=== PATIENT | female | born 1955 ===

== ENCOUNTER 2020-05-14 10:17 | Inpatient (IN) | payer MEDICAID, MEDICARE ==
--- NOTE | 2020-05-14 11:11 | XRay Report ---
XR chest routine 2V INDICATION / CLINICAL INFORMATION: cough, nausea, dizziness. COMPARISON: None available. FINDINGS: SUPPORT DEVICES: None. HEART /PULMONARY VASCULATURE: No significant abnormality. LUNGS / PLEURA: No significant pulmonary or pleural abnormality. No pneumothorax. ADDITIONAL FINDINGS: No significant additional findings. IMPRESSION: 1. No acute findings. Signer Name: Ady Macias MD Signed: 05/14/2020 11:07 AM Workstation Name: [id number]
[2020-05-14 11:22] LABS: Basophils % (Auto) 0.5 % (0.0-1.8); Eosinophils % (Auto) 0.3 % (0.0-4.3); Hematocrit 36.1 % (30.3-42.9); Hemoglobin 11.7 gm/dl (10.1-14.3); Lymphocytes # (Auto) 1.8 K/mm3 (1.2-5.4); Lymphocytes % (Auto) 23.9 % (13.4-35.0); Mean Corpuscular HGB Conc 32 % (30-34); Mean Corpuscular Volume 88 fl (79-97); Monocytes # (Auto) 0.6 K/mm3 (0.0-0.8); Monocytes % (Auto) 7.8 % (0.0-7.3); Platelet Count 226 K/mm3 (140-440); Red Blood Count 4.09 M/mm3 (3.65-5.03); Red Cell Distribution Width 14.5 % (13.2-15.2)
[2020-05-14 11:46] LABS: Albumin 3.5 g/dL (3.9-5); Calcium 9.5 mg/dL (8.4-10.2)
[2020-05-14] MEDS ORDERED: SODIUM CHLORIDE 0.9% 500 ML 500 ML IV ONE (16:45)
[2020-05-14] MEDS ORDERED: INSULIN REGULAR, HUMAN 100 UNIT/ML 3ML VIAL IV ONE (16:45)
[2020-05-14] MEDS ORDERED: SODIUM POLYSTYRENE 15 GM/60 ML ORAL LIQD PO ONE (16:46)
--- NOTE | 2020-05-14 16:47 | Emergency Department Report ---
ED General Adult HPI - General Chief complaint: Dizziness Stated complaint: COUGH/NAUSEA/DIZZNESS PUI?: Yes Time Seen by Provider: 05/14/20 16:13 Source: patient, EMS ( EMS documentation not available at time of chart dic tation ), RN notes reviewed Mode of arrival: Wheelchair Limitations: Physical Limitation - History of Present Illness Initial comments: The patient was evaluated in the emergency department for symptoms described in the history of present illness. He/she was evaluated in the context of the global COVID-19 pandemic, which necessitated consideration that the patient might be at risk for infection with the virus that causes COVID-19. Institutional protocols and algorithms that pertain to the evaluation of patients at risk for COVID-19 are in a state of rapid change based on information released by regulatory bodies including the CDC and federal and state organizations. These policies and algorithms were followed during the patient's care in the emergency department. Please note that these policies, procedures and recommendations changed on a rapid basis. During the entire history and physical examination, I had on complete personal protective equipment. The patient is a pleasant 64-year-old female. She is not known to myself previously. She is visiting from [place], [place]. Her past medical history includes diabetes, GERD, hypertension, stroke, residual left-sided deficits. The patient presents to the ER with a complaint of nontraumatic cough, dry, wet, loss of taste, smell, x1 week, 2 episodes of nonbloody, nonbilious diarrhea today, no urinary symptoms, and sensation of lightheadedness and dizziness, present upon waking up at 8:00 in the morning, described as a sensation of almost passing out. No fever, no travel, no surgeries, no DVT or pulmonary embolism risk factors. Patient denies physical pain at this time. She does not believe she has had any new medications started. Does not have a history of renal insufficiency that she is aware of. Cough intermittent. Diarrhea resolved. Dizziness resolved. Not radiate anywhere. No significant exacerbating relieving factors that she is aware of. -: Gradual, days(s) Consistency: intermittent Improves with: none Worsens with: none - Related Data Allergies Allergy/AdvReac Type Severity Reaction Status Date / Time No Known Allergies Allergy Unverified 05/14/20 10:21 ED Review of Systems ROS: Stated complaint: COUGH/NAUSEA/DIZZNESS Other details as noted in HPI Constitutional: malaise, weakness. denies: fever Eyes: denies: eye discharge ENT: congestion Respiratory: cough Cardiovascular: syncope. denies: chest pain Gastrointestinal: nausea, vomiting, diarrhea. denies: abdominal pain Genitourinary: denies: dysuria Musculoskeletal: as per HPI. denies: myalgia Neurological: weakness. denies: headache ED Past Medical Hx - Past Medical History Previous Medical History?: Yes Hx Hypertension: Yes Hx Diabetes: Yes Hx GERD: Yes - Social History Smoking Status: Former Smoker Substance Use Type: None ED Physical Exam - General Limitations: Physical Limitation General appearance: alert, in no apparent distress - Head Head exam: Present: atraumatic, normocephalic - Eye Eye exam: Present: normal appearance, PERRL, EOMI, other (Visual acuity intact to finger counting, color perception, reading at a close distance). Absent: nystagmus - ENT ENT exam: Present: normal exam, normal orophraynx, mucous membranes moist, normal external ear exam - Neck Neck exam: Present: normal inspection, full ROM. Absent: tenderness, meningismus - Respiratory Respiratory exam: Present: normal lung sounds bilaterally. Absent: respiratory distress, wheezes, rales, rhonchi, stridor - Cardiovascular Cardiovascular Exam: Present: regular rate, normal rhythm, normal heart sounds. Absent: bradycardia, tachycardia, irregular rhythm, systolic murmur, diastolic murmur, rubs, gallop - GI/Abdominal GI/Abdominal exam: Present: soft. Absent: distended, tenderness, guarding, rebound, rigid, pulsatile mass, hernia - Extremities Exam Extremities exam: Present: normal inspection, full ROM, pedal edema (1+ edema in the bilateral lower extremity), other (The patient was evaluated in the emergency department for symptoms described in the history of present illness. He/she was evaluated in the context of the global COVID-19 pandemic, which necessitated consideration that the patient might be at risk for infection with the virus that causes COVID-19. Institutional protocols and algorithms that pertain to the evaluation of patients at risk for COVID-19 are in a state of rapid change based on information released by regulatory bodies including the CDC and federal and state organizations. These policies and algorithms were followed during the patient's care in the emergency department. Please note that these policies, procedures and recommendations changed on a rapid basis.). Absent: calf tenderness - Back Exam Back exam: Present: normal inspection. Absent: tenderness, CVA tenderness (R), CVA tenderness (L), paraspinal tenderness, vertebral tenderness - Neurological Exam Neurological exam: Present: alert, oriented X3, other (No facial droop. Tongue midline. Extraocular movements intact bilaterally. Facial sensation intact to light touch in V1, V2, V3 distribution bilaterally. 5 and a 5 strength in 4 extremities. Sensation intact to light touch in 4 extremities.). Absent: motor sensory deficit - Psychiatric Psychiatric exam: Present: normal affect, normal mood - Skin Skin exam: Present: warm, dry, intact, normal color. Absent: rash ED Course Vital Signs 05/14/20 10:29 Temperature 97.9 F Pulse Rate 81 Respiratory 20 Rate Blood Pressure 107/55 O2 Sat by Pulse 96 Oximetry - Reevaluation(s) Reevaluation #1: 05/14/20 17:20 Differential diagnosis, including but not limited to: Orthostasis, dehydration, vagal event, structural cardiac disease, polypharmacy, pneumonia, urinary tract infection, COVID-19, stroke Assessment and plan: 64-year-old female, with a GCS of 15, wake-up symptoms, has chronic shift in her right upper extremities, chronic, in her right upper extremities, while she has a NIH score of 4, woke up with symptoms, examination not suggestive of large vessel occlusion, and she also states that right upper extremity findings are chronic. Not a candidate for TPA for the reasons described above. Place patient on isolation given cough, loss of taste and nonspecific constitutional symptoms. Start gentle IV fluids, and initiate Kayexalate. No indication for antibiotics or steroids at this time. Obtain CT scan of the brain. Nursing team to reconcile medications. Give Kayexalate. Have instructed patient that we would recommend admission for further optimization and investigation of the aforementioned abnormalities. She is amenable to this plan of care. Not currently tachycardic, tachypneic or hypoxic, denies DVT, pulmonary embolism risk factors, and I find her to be low risk by Wells criteria. Reevaluation #2: 05/14/20 18:14 CT scan of the brain negative for acute findings. Hospital physician, Dr. Romero to admit. ED Medical Decision Making - Lab Data Result diagrams: 05/14/20 11:01 05/14/20 16:54 Vital Signs 11/26/20 10:29 Temperature 97.9 F Pulse Rate 81 Respiratory 20 Rate Blood Pressure 107/55 O2 Sat by Pulse 96 Oximetry Lab Results 05/14/20 05/14/20 05/14/20 Range/Units 11:01 11:01 11:01 WBC 7.3 (4.5-11.0) K/mm3 RBC 4.09 (3.65-5.03) M/mm3 Hgb 11.7 (10.1-14.3) gm/dl Hct 36.1 (30.3-42.9) % MCV 88 (79-97) fl MCH 29 (28-32) pg MCHC 32 (30-34) % RDW 14.5 (13.2-15.2) % Plt Count 226 (140-440) K/mm3 Lymph % (Auto) 23.9 (13.4-35.0) % [place] % (Auto) 7.8 H (0.0-7.3) % Eos % (Auto) 0.3 (0.0-4.3) % Baso % (Auto) 0.5 (0.0-1.8) % Lymph # (Auto) 1.8 (1.2-5.4) K/mm3 [place] # (Auto) 0.6 (0.0-0.8) K/mm3 Eos # (Auto) 0.0 (0.0-0.4) K/mm3 Baso # (Auto) 0.0 (0.0-0.1) K/mm3 Seg Neutrophils % 67.5 (40.0-70.0) % Seg Neutrophils # 4.9 (1.8-7.7) K/mm3 Sodium 134 L (137-145) mmol/L Potassium 5.2 H (3.6-5.0) mmol/L Chloride 96.7 L (98-107) mmol/L Carbon Dioxide 26 (22-30) mmol/L Anion Gap 17 mmol/L BUN 30 H (7-17) mg/dL Creatinine 2.2 H (0.6-1.2) mg/dL Estimated GFR 22 ml/min BUN/Creatinine Ratio 14 % Glucose 381 H (65-100) mg/dL Calcium 9.5 (8.4-10.2) mg/dL Magnesium 2.10 (1.7-2.3) mg/dL Total Bilirubin 0.40 (0.1-1.2) mg/dL AST 26 (5-40) units/L ALT 24 (7-56) units/L Alkaline Phosphatase 116 (35-129) units/L Total Creatine Kinase 288 H (30-135) units/L NT-Pro-B Natriuret Pep 84.64 (0-900) pg/mL Total Protein 7.5 (6.3-8.2) g/dL Albumin 3.5 L (3.9-5) g/dL Albumin/Globulin Ratio 0.9 % Lipase 25 (13-60) units/L - EKG Data -: EKG Interpreted by Me EKG shows normal: sinus rhythm - EKG Data When compared to previous EKG there are: previous EKG unavailable 05/14/20 17:19 Sinus rhythm, 82 bpm, left axis deviation, borderline left anterior fascicular block, poor R wave progression, motion artifact. No endorsement of chest pain. The EKG is not a STEMI. - Radiology Data Radiology results: pending, report reviewed, image reviewed Critical care attestation.: If time is entered above; I have spent that time in minutes in the direct care of this critically ill patient, excluding procedure time. ED Disposition Clinical Impression: Hyperkalemia, Renal insufficiency, Suspected 2019 novel coronavirus infection, Dizziness, Hyperglycemia Disposition: DC-09 OP ADMIT IP TO THIS HOSP Is pt being admited?: Yes Condition: Good Referrals: PRIMARY CARE, [Primary Care Provider] - 3-5 Days - Assessment Assessment Interval: Baseline - Level of Consciousness 1a. Level of Consciousness: alert/keenly responsive - LOC Questions 1b. LOC Questions: answers both correctly - LOC Command 1c. LOC Commands: performs tasks correctly - Best Gaze 2. Best Gaze: normal - Visual 3. Visual: no visual loss - Facial Palsy 4. Facial Palsy: normal symmetrical movement - Motor Arm 5a. Motor Arm Left: drift 5b. Motor Arm Right: drift - Motor Leg 6a. Motor Leg Left: no drift 6b. Motor Leg Right: no drift - Limb Ataxia 7. Limb Ataxia: present 2 limbs - Sensory 8. Sensory: normal (States drift is chronic in bilateral upper extremities and bilateral upper extremities.) - Best Language 9. Best Language: no aphasia - Dysarthria 10. Dysarthria: normal - Extinction and Inattention 11. Extinction/Inattention: no abnormality - Scoring Total Score: 4 Stroke Severity: Minor Stroke
[2020-05-14] MEDS ORDERED: INSULIN REGULAR, HUMAN 100 UNITS/1 ML ONE (17:00)
[2020-05-14 17:26] LABS: C-Reactive Protein 3.4 mg/dL (0.00-1.30)
[2020-05-14 17:27] LABS: Uric Acid 6.8 mg/dL (3.5-7.6)
--- NOTE | 2020-05-14 18:11 | Cat Scan Report ---
NONENHANCED CT SCAN OF THE HEAD: INDICATION / CLINICAL INFORMATION: 64 years Female; dizzy, hx of cva. TECHNIQUE: Routine CT head without contrast. All CT scans at this location are performed using CT dos e reduction for ALARA by means of automated exposure control. COMPARISON: None. FINDINGS: BRAIN / INTRACRANIAL CONTENTS: No acute hemorrhage, mass effect, midline shift, hydrocephalus, or acu te, large territorial infarct. Focal low-attenuation areas in the left middle temporal gyrus and in t he left cerebellar hemispheric white matter; ischemic areas of indeterminate age, however, probably c hronic. Normal brain volume and ventricular/sulcal size for age. No significant white matter abnormal ity. CRANIOCERVICAL JUNCTION: No significant abnormality. ORBITS: No significant abnormality of visualized orbits. SINUSES / MASTOIDS: No significant abnormality of the visualized paranasal sinuses or mastoid air andria ls. ADDITIONAL FINDINGS: None. IMPRESSION: No hemorrhage or space taking lesion Low attenuation areas in the left middle temporal gyrus and left cerebellar hemisphere; ischemic, age indeterminate but probably chronic Signer Name: Kenrick Lopez MD Signed: 05/14/2020 6:07 PM Workstation Name: [id number]
[2020-05-14] MEDS ORDERED: ASPIRIN 81 MG TAB CHEW PO ONE (18:14)
--- NOTE | 2020-05-14 18:16 | History and Physical Report ---
History of Present Illness Chief complaint: I feel sick History of present illness: 64 YO Female with HTN, DM, GERD, CVA with LHP, Obesity Hypoventilation Syndrome presents to ED for evaluation. Patient states that she has been "feeling sick" over the past 1 week with persistently worsening symptoms over the same nevin eframe. Patient acknowledges fatigue, generalized weakness, decreased exercise tolerance, dry cough, loss of sense of taste, loss of sense of smell, multiple episodes of nausea, multiple loose stools over the past 10 hours. EMS was notified and upon arrival the patient was found to be in distress and subsequently transported to [facility] for further care and evaluation of the aforementioned symptoms. The patient was seen and evaluated in the emergency department. All lab and imaging studies reviewed. The patient was found to have acute kidney injury, uncontrolled diabetes mellitus, hyperkalemia, hyponatremia, as well as symptoms consistent with coronavirus. Patient initiated on coronavirus protocol prior to my evaluation in the emergency department. Patient admitted to medical floor due to increased risk of pulmonary decompensation. Patient knowledges subjective fever. Patient denies chills, chest pain, palpitation, skin rash, recent ill contacts, or known exposure to COVID-19. No prior admission for review. No medication listed at time of admission for reconciliation. Advanced care planning conducted in ED. Past History Past Medical History: diabetes, GERD, hypertension, stroke Past Surgical History: No surgical history, Other (Reviewed) Social history: single. denies: smoking, alcohol abuse, prescription drug abuse Family history: hypertension Medications and Allergies Allergies Allergy/AdvReac Type Severity Reaction Status Date / Time No Known Allergies Allergy Unverified 05/14/20 10:21 Review of Systems Constitutional: fever, fatigue, weakness, malaise, no weight loss, no weight gain Ears, nose, mouth and throat: no ear pain, no ear discharge, no tinnitis, no decreased hearing Breasts: no change in shape, no swelling, no mass Cardiovascular: no chest pain, no orthopnea, no palpitations, no edema Respiratory: shortness of breath, no cough, no cough with sputum, no excessive sputum Gastrointestinal: nausea, diarrhea, no abdominal pain, no constipation, no change in bowel habits, no hematemesis Genitourinary Female: no pelvic pain, no flank pain, no dysuria, no urinary frequency, no urgency Rectal: no pain, no incontinence, no bleeding Musculoskeletal: no neck stiffness, no neck pain, no shooting arm pain, no arm numbness/tingling, no low back pain Integumentary: no rash, no pruritis, no redness, no sores, no wounds Neurological: no head injury, no transient paralysis, no weakness, no parathes ias, no seizures, no tremors Psychiatric: no anxiety, no memory loss, no insomnia, no hypersomnia, no change in appetite, no disorientation Endocrine: no cold intolerance, no heat intolerance, no polyphagia, no polydipsia, no polyuria, no nocturia Hematologic/Lymphatic: no easy bruising, no easy bleeding, no lymphadenopathy, no lymphedema Allergic/Immunologic: no urticaria, no allergic rhinitis, no persistent infections, no anaphylaxis, no angioedema Exam - Constitutional Vitals: Temp Pulse Resp BP Pulse Ox 97.9 F 81 20 107/55 96 05/14/20 10:29 05/14/20 10:29 05/14/20 10:29 05/14/20 10:29 05/14/20 10:29 General appearance: Present: mild distress, obese - EENT Eyes: Present: PERRL ENT: hearing intact, clear oral mucosa - Neck Neck: Present: supple, normal ROM - Respiratory Respiratory effort: normal Respiratory: bilateral: diminished - Cardiovascular Heart Sounds: Present: S1 & S2. Absent: rub, click - Extremities Extremities: pulses symmetrical, No edema Peripheral Pulses: within normal limits - Abdominal General gastrointestinal: Present: soft, non-tender, non-distended, normal bowel sounds Female genitourinary: Present: normal - Integumentary Integumentary: Present: clear, warm, dry - Musculoskeletal Musculoskeletal: gait normal, strength equal bilaterally - Psychiatric Psychiatric: appropriate mood/affect, intact judgment & insight - Neurologic Neurologic: CNII-XII intact, moves all extremities Results - Labs CBC & Chem 7: 05/14/20 11:05/14/20 16:54 Labs: Abnormal lab results 05/14/20 05/14/20 05/14/20 Range/Units 11: 11: 16:54 [place] % (Auto) 7.8 H (0.0-7.3) % Sodium 134 L (137-145) mmol/L Potassium 5.2 H (3.6-5.0) mmol/L Chloride 96.7 L (98-107) mmol/L BUN 30 H (7-17) mg/dL Creatinine 2.2 H (0.6-1.2) mg/dL Glucose 381 H 446 H (65-100) mg/dL Ferritin (10.0-200.0) ng/mL Lactate Dehydrogenase 229 H (91-180) units/L Total Creatine Kinase 288 H (30-135) units/L C-Reactive Protein 3.40 H (0.00-1.30) mg/dL Albumin 3.5 L (3.9-5) g/dL 05/14/20 Range/Units 16:54 [place] % (Auto) (0.0-7.3) % Sodium (137-145) mmol/L Potassium (3.6-5.0) mmol/L Chloride (98-107) mmol/L BUN (7-17) mg/dL Creatinine (0.6-1.2) mg/dL Glucose (65-100) mg/dL Ferritin 593.3 H (10.0-200.0) ng/mL Lactate Dehydrogenase (91-180) units/L Total Creatine Kinase (30-135) units/L C-Reactive Protein (0.00-1.30) mg/dL Albumin (3.9-5) g/dL Assessment and Plan - Patient Problems (1) Suspected 2019 novel coronavirus infection Current Visit: Yes Status: Acute Plan to address problem: Coronavirus protocol: Contact precautions, isolation precautions, empiric IV antibiotic therapy, IV steroid therapy, supplemental oxygen, pulse oximetry, nebulizer therapy, prone positioning while in bed, (2) Acute kidney injury (TOVA) with acute tubular necrosis (ATN) Current Visit: Yes Status: Acute Plan to address problem: Encourage free water intake, monitor urine output every shift, monitor fluid balance, (3) Obesity hypoventilation syndrome Current Visit: Yes Status: Acute Plan to address problem: Supplemental oxygen, nebulizer therapy, outpatient pulmonary follow-up for sleep study. (4) Hyperkalemia Current Visit: Yes Status: Acute Plan to address problem: Kayexalate administered in the emergency department. No EKG changes. (5) Hyponatremia syndrome Current Visit: Yes Status: Acute Plan to address problem: IV fluid resuscitation therapy as clinically indicated, BMP, repeat BMP in a.m. (6) DVT prophylaxis Current Visit: Yes Status: Acute Plan to address problem: SCD to bilateral lower extremities while in bed, prophylactic anticoagulation. (7) Advance care planning Current Visit: Yes Status: Acute Plan to address problem: Disease education conducted, patient is full code, prognosis discussed, care plan discussed, patient knowledges understanding and agreement with care plan, +30 minutes.
[2020-05-14] MEDS ORDERED: ACETAMINOPHEN 325 MG TAB PO PRN (18:20)
[2020-05-14] MEDS ORDERED: ALBUTEROL 2.5 MG/3 ML NEBU IH PRN (18:20)
[2020-05-14] MEDS ORDERED: HYDROmorphone 1 MG/1 ML INJ ONE (21:07)
[2020-05-14] MEDS ORDERED: ASPIRIN 81 MG TAB CHEW ONE (21:09)
[2020-05-14] MEDS: ONDANSETRON 4 MG/2 ML INJ IV PRN (22:46)
[2020-05-15 06:38] LABS: Basophils % (Auto) 0.3 % (0.0-1.8); Eosinophils % (Auto) 0.2 % (0.0-4.3); Hematocrit 31.9 % (30.3-42.9); Hemoglobin 10.4 gm/dl (10.1-14.3); Lymphocytes % (Auto) 38.6 % (13.4-35.0); Mean Corpuscular HGB Conc 33 % (30-34); Mean Corpuscular Volume 88 fl (79-97); Monocytes # (Auto) 0.6 K/mm3 (0.0-0.8); Monocytes % (Auto) 10.7 % (0.0-7.3); Platelet Count 211 K/mm3 (140-440); Red Blood Count 3.65 M/mm3 (3.65-5.03)
[2020-05-15 07:00] LABS: Calcium 9.1 mg/dL (8.4-10.2)
[2020-05-15] MEDS ORDERED: DEXTROSE 50% IN WATER (25GM) 50 ML SYRINGE IV PRN (07:43)
--- NOTE | 2020-05-15 07:46 | Progress Note ---
Assessment and Plan Assessment and plan: (1) Suspected 2019 novel coronavirus infection Current Visit: Yes Status: Acute Plan to address problem: Coronavirus protocol: Contact precautions, isolation precautions, empiric IV antibiotic therapy, IV steroid therapy, supplemental oxygen, pulse oximetry, nebulizer therapy (2) Acute kidney injury (TOVA) with acute tubular necrosis (ATN) Current Visit: Yes Status: Acute Plan to address problem: Encourage free water intake, monitor urine output every shift, monitor fluid balance, Improving. Creatinine decreased from 2.2-1.6 (3) diabetes mellitus, uncontrolled Current Visit: Yes Status: Acute Plan to address problem: Patient started on sliding scale insulin, ADA diet, Accu-Chek, will check hemoglobin A1c, the patient on 10 units of Lantus nightly. Will monitor and adjust as needed (4) Hyperkalemia Current Visit: Yes Status: Acute Plan to address problem: Kayexalate administered in the emergency department. No EKG changes. Corrected (5) Hyponatremia syndrome Current Visit: Yes Status: Acute Plan to address problem: IV fluid resuscitation therapy as clinically indicated, BMP, repeat BMP in a.m. Improving; sodium is 136 this morning (6) DVT prophylaxis Current Visit: Yes Status: Acute Plan to address problem: SCD to bilateral lower extremities while in bed, prophylactic anticoagulation. History Interval history: Patient was seen and evaluated this morning Patient did not have any complaint No shortness of breath On 1 and half liters of oxygen Hospitalist Physical - Physical exam Narrative exam: Not in cardiopulmonary distress. The patient appeared well nourished and normally developed. Vital signs as documented. Head exam is unremarkable. No scleral icterus . Neck is without jugular venous distension, thyromegaly, or carotid bruits. Lungs are clear to auscultation. Cardiac exam reveals regular rate and Rhythm. Abdominal exam reveals normal bowel sounds, nontender, no organomegaly. Extremities are nonedematous and both femoral and pedal pulses are normal. STUNNER: Alert and oriented 3. Mild left-sided weakness. - Constitutional Vitals: Temp Pulse Resp BP Pulse Ox 97.9 F 77 21 102/54 95 05/14/20 10:29 05/14/20 21:30 05/14/20 21:30 05/14/20 21:30 05/14/20 20:15 General appearance: Present: mild distress, obese Results - Labs CBC & Chem 7: 05/15/20 05:08 05/15/20 05:08 Labs: Laboratory Last Values WBC 5.3 K/mm3 (4.5-11.0) 05/15/20 05:08 RBC 3.65 M/mm3 (3.65-5.03) 05/15/20 05:08 Hgb 10.4 gm/dl (10.1-14.3) 05/15/20 05:08 Hct 31.9 % (30.3-42.9) 05/15/20 05:08 MCV 88 fl (79-97) 05/15/20 05:08 MCH 28 pg (28-32) 05/15/20 05:08 MCHC 33 % (30-34) 05/15/20 05:08 RDW 14.0 % (13.2-15.2) 05/15/20 05:08 Plt Count 211 K/mm3 (140-440) 05/15/20 05:08 Lymph % (Auto) 38.6 % (13.4-35.0) H 05/15/20 05:08 [place]ook[place] % (Auto) 10.7 % (0.0-7.3) H 05/15/20 05:08 Eos % (Auto) 0.2 % (0.0-4.3) 05/15/20 05:08 Baso % (Auto) 0.3 % (0.0-1.8) 05/15/20 05:08 Lymph # (Auto) 2.0 K/mm3 (1.2-5.4) 05/15/20 05:08 [place] # (Auto) 0.6 K/mm3 (0.0-0.8) 05/15/20 05:08 Eos # (Auto) 0.0 K/mm3 (0.0-0.4) 05/15/20 05:08 Baso # (Auto) 0.0 K/mm3 (0.0-0.1) 05/15/20 05:08 Seg Neutrophils % 50.2 % (40.0-70.0) 05/15/20 05:08 Seg Neutrophils # 2.7 K/mm3 (1.8-7.7) 05/15/20 05:08 Sodium 136 mmol/L (137-145) L 05/15/20 05:08 Potassium 4.8 mmol/L (3.6-5.0) 05/15/20 05:08 Chloride 99.8 mmol/L (98-107) 05/15/20 05:08 Carbon Dioxide 28 mmol/L (22-30) 05/15/20 05:08 Anion Gap 13 mmol/L 05/15/20 05:08 BUN 28 mg/dL (7-17) H 05/15/20 05:08 Creatinine 1.6 mg/dL (0.6-1.2) H 05/15/20 05:08 Estimated GFR 32 ml/min 05/15/20 05:08 BUN/Creatinine Ratio 18 % 05/15/20 05:08 Glucose 279 mg/dL (65-100) H 05/15/20 05:08 POC Glucose 185 mg/dL (70-105) H 05/14/20 20:09 Uric Acid 6.8 mg/dL (3.5-7.6) 05/14/20 16:54 Calcium 9.1 mg/dL (8.4-10.2) 05/15/20 05:08 Magnesium 2.10 mg/dL (1.7-2.3) 05/14/20 16:54 Ferritin 593.3 ng/mL (10.0-200.0) H 05/14/20 16:54 Total Bilirubin 0.40 mg/dL (0.1-1.2) 05/14/20 11:01 AST 26 units/L (5-40) 05/14/20 11:01 ALT 24 units/L (7-56) 05/14/20 11:01 Alkaline Phosphatase 116 units/L (35-129) 05/14/20 11:01 Lactate Dehydrogenase 229 units/L (91-180) H 05/14/20 16:54 Total Creatine Kinase 288 units/L (30-135) H 05/14/20 11:01 C-Reactive Protein 3.40 mg/dL (0.00-1.30) H 05/14/20 16:54 NT-Pro-B Natriuret Pep 84.64 pg/mL (0-900) 05/14/20 11:01 Total Protein 7.5 g/dL (6.3-8.2) 05/14/20 11:01 Albumin 3.5 g/dL (3.9-5) L 05/14/20 11:01 Albumin/Globulin Ratio 0.9 % 05/14/20 11:01 Lipase 25 units/L (13-60) 05/14/20 11:01 Waldron/IV: Voiding Method Diaper IV Catheter Type [Left Hand] INT / Saline Lock Active Medications - Current Medications Current Medications: Generic Name Dose Route Start Last Admin Trade Name Freq PRN Reason Stop Dose Admin Acetaminophen 650 mg 05/14/20 18:20 Tylenol PO Q4H PRN Pain MILD(1-3)/Fever >100.5/MARCUS Albuterol 2.5 mg 05/14/20 18:20 Proventil IH Q4HRT PRN Shortness Of Breath Dextrose 50 ml 05/15/20 07:43 D50w (25gm) Syringe IV Q30MIN PRN Hypoglycemia Protocol Levofloxacin/Dextrose 750 mg in 150 mls @ 100 mls/hr 05/14/20 20:00 05/14/20 21:13 Levaquin 750mg/150ml IV 100 mls/hr Q24HR MEI Administration Protocol Insulin Glargine 10 units 05/15/20 22:00 Lantus SUB-Q QHS MEI Insulin Human Lispro 0 unit 05/15/20 11:30 Humalog SUB-Q ACHS MEI Protocol Ondansetron HCl 4 mg 05/14/20 18:20 05/14/20 22:46 Zofran IV 4 mg Q8H PRN Administration Nausea And Vomiting Sodium Chloride 10 ml 05/14/20 22:00 05/14/20 22:03 Sodium Chloride Flush Syringe 10 Ml IV 10 ml BID MEI Administration Sodium Chloride 10 ml 05/14/20 18:20 Sodium Chloride Flush Syringe 10 Ml IV PRN PRN LINE FLUSH
[2020-05-15] MEDS: INSULIN LISPRO 100 UNIT/ML VIAL 3 mL SUB-Q SCH ×4 (08:27→21:56)
[2020-05-15] MEDS: ONDANSETRON 4 MG/2 ML INJ IV PRN (17:50)
[2020-05-15] MEDS: INSULIN GLARGINE 100 UNITS/ML SUB-Q SCH (21:55)
[2020-05-16 06:39] LABS: Calcium 9.1 mg/dL (8.4-10.2)
--- NOTE | 2020-05-16 08:05 | Progress Note ---
Assessment and Plan Assessment and plan: (1) Suspected 2019 novel coronavirus infection Current Visit: Yes Status: Acute Plan to address problem: Coronavirus protocol: Contact precautions, isolation precautions, empiric IV antibiotic therapy, IV steroid therapy, supplemental oxygen, pulse oximetry, nebulizer therapy (2) Acute kidney injury (TOVA) with acute tubular necrosis (ATN) Current Visit: Yes Status: Acute Plan to address problem: Encourage free water intake, monitor urine output every shift, monitor fluid balance, Improving. Creatinine decreased from 2.2-1.6 (3) diabetes mellitus, uncontrolled Current Visit: Yes Status: Acute Plan to address problem: Patient started on sliding scale insulin, ADA diet, Accu-Chek, will check hemoglobin A1c, the patient on 10 units of Lantus nightly. Will monitor and adjust as needed (4) Hyperkalemia Current Visit: Yes Status: Acute Plan to address problem: Kayexalate administered in the emergency department. No EKG changes. Corrected (5) Hyponatremia syndrome Current Visit: Yes Status: Acute Plan to address problem: IV fluid resuscitation therapy as clinically indicated, BMP, repeat BMP in a.m. Improving; sodium is 136 this morning (6) DVT prophylaxis Current Visit: Yes Status: Acute Plan to address problem: SCD to bilateral lower extremities while in bed, prophylactic anticoagulation. 05/08/2020 -COVID-19 test is positive, and is on 1 and half liters of oxygen, patient started on Decadron -TOVA is improving, hyperkalemia resolved, hyponatremia resolved -We will do home O2 evaluation and possible discharge today History Interval history: Patient was seen and evaluated this morning Patient did not have any complaint No shortness of breath On 1 and half liters of oxygen Hospitalist Physical - Physical exam Narrative exam: Not in cardiopulmonary distress. The patient appeared well nourished and normally developed. Vital signs as documented. Head exam is unremarkable. No scleral icterus . Neck is without jugular venous distension, thyromegaly, or carotid bruits. Lungs are clear to auscultation. Cardiac exam reveals regular rate and Rhythm. Abdominal exam reveals normal bowel sounds, nontender, no organomegaly. Extremities are nonedematous and both femoral and pedal pulses are normal. 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 Mild left-sided weakness. - Constitutional Vitals: Temp Pulse Resp BP Pulse Ox 99.0 F 78 18 107/55 100 05/15/20 21:14 05/15/20 21:14 05/15/20 21:14 05/15/20 21:14 05/16/20 01:01 General appearance: Present: mild distress, obese Results - Labs CBC & Chem 7: 05/15/20 05:08 05/16/20 05:49 Labs: Laboratory Last Values WBC 5.3 K/mm3 (4.5-11.0) 05/15/20 05:08 RBC 3.65 M/mm3 (3.65-5.03) 05/15/20 05:08 Hgb 10.4 gm/dl (10.1-14.3) 05/15/20 05:08 Hct 31.9 % (30.3-42.9) 05/15/20 05:08 MCV 88 fl (79-97) 05/15/20 05:08 MCH 28 pg (28-32) 05/15/20 05:08 MCHC 33 % (30-34) 05/15/20 05:08 RDW 14.0 % (13.2-15.2) 05/15/20 05:08 Plt Count 211 K/mm3 (140-440) 05/15/20 05:08 Lymph % (Auto) 38.6 % (13.4-35.0) H 05/15/20 05:08 [place] % (Auto) 10.7 % (0.0-7.3) H 05/15/20 05:08 Eos % (Auto) 0.2 % (0.0-4.3) 05/15/20 05:08 Baso % (Auto) 0.3 % (0.0-1.8) 05/15/20 05:08 Lymph # (Auto) 2.0 K/mm3 (1.2-5.4) 05/15/20 05:08 [place] # (Auto) 0.6 K/mm3 (0.0-0.8) 05/15/20 05:08 Eos # (Auto) 0.0 K/mm3 (0.0-0.4) 05/15/20 05:08 Baso # (Auto) 0.0 K/mm3 (0.0-0.1) 05/15/20 05:08 Seg Neutrophils % 50.2 % (40.0-70.0) 05/15/20 05:08 Seg Neutrophils # 2.7 K/mm3 (1.8-7.7) 05/15/20 05:08 Sodium 139 mmol/L (137-145) 05/16/20 05:49 Potassium 4.9 mmol/L (3.6-5.0) 05/16/20 05:49 Chloride 100.9 mmol/L (98-107) 05/16/20 05:49 Carbon Dioxide 26 mmol/L (22-30) 05/16/20 05:49 Anion Gap 17 mmol/L 05/16/20 05:49 BUN 27 mg/dL (7-17) H 05/16/20 05:49 Creatinine 1.7 mg/dL (0.6-1.2) H 05/16/20 05:49 Estimated GFR 30 ml/min 05/16/20 05:49 BUN/Creatinine Ratio 16 % 05/16/20 05:49 Glucose 241 mg/dL (65-100) H 05/16/20 05:49 POC Glucose 156 mg/dL (70-105) H 05/15/20 21:37 Hemoglobin A1c 13.0 % (4-6) H 05/15/20 05:08 Uric Acid 6.8 mg/dL (3.5-7.6) 05/14/20 16:54 Calcium 9.1 mg/dL (8.4-10.2) 05/16/20 05:49 Magnesium 2.10 mg/dL (1.7-2.3) 05/14/20 16:54 Ferritin 593.3 ng/mL (10.0-200.0) H 05/14/20 16:54 Total Bilirubin 0.40 mg/dL (0.1-1.2) 05/14/20 11:01 AST 26 units/L (5-40) 05/14/20 11:01 ALT 24 units/L (7-56) 05/14/20 11:01 Alkaline Phosphatase 116 units/L (35-129) 05/14/20 11:01 Lactate Dehydrogenase 229 units/L (91-180) H 05/14/20 16:54 Total Creatine Kinase 288 units/L (30-135) H 05/14/20 11:01 C-Reactive Protein 3.40 mg/dL (0.00-1.30) H 05/14/20 16:54 NT-Pro-B Natriuret Pep 84.64 pg/mL (0-900) 05/14/20 11:01 Total Protein 7.5 g/dL (6.3-8.2) 05/14/20 11:01 Albumin 3.5 g/dL (3.9-5) L 05/14/20 11:01 Albumin/Globulin Ratio 0.9 % 05/14/20 11:01 Lipase 25 units/L (13-60) 05/14/20 11:01 Procalcitonin 0.11 ng/mL (<0.15) 05/14/20 16:54 Coronavirus (PCR) Positive (Negative) A 05/15/20 10:26 Waldron/IV: Voiding Method Toilet IV Catheter Type [Left Hand] INT / Saline Lock Active Medications - Current Medications Current Medications: Generic Name Dose Route Start Last Admin Trade Name Freq PRN Reason Stop Dose Admin Acetaminophen 650 mg 05/14/20 18:20 Tylenol PO Q4H PRN Pain MILD(1-3)/Fever >100.5/MARCUS Albuterol 2.5 mg 05/14/20 18:20 Proventil IH Q4HRT PRN Shortness Of Breath Dextrose 50 ml 05/15/20 07:43 D50w (25gm) Syringe IV Q30MIN PRN Hypoglycemia Protocol Levofloxacin/Dextrose 750 mg in 150 mls @ 100 mls/hr 05/14/20 20:00 05/15/20 12:30 Levaquin 750mg/150ml IV 100 mls/hr Q24HR MEI Administration Protocol Insulin Glargine 10 units 05/15/20 22:00 05/15/20 21:55 Lantus SUB-Q 10 units QHS MEI Administration Insulin Human Lispro 0 unit 05/15/20 08:00 05/15/20 21:56 Humalog SUB-Q 3 unit ACHS MEI Administration Protocol Ondansetron HCl 4 mg 05/14/20 18:20 05/15/20 17:50 Zofran IV 4 mg Q8H PRN Administration Nausea And Vomiting Sodium Chloride 10 ml 05/14/20 22:00 05/15/20 21:57 Sodium Chloride Flush Syringe 10 Ml IV 10 ml BID MEI Administration Sodium Chloride 10 ml 05/14/20 18:20 Sodium Chloride Flush Syringe 10 Ml IV PRN PRN LINE FLUSH Nutrition/Malnutrition Assess - Dietary Evaluation Nutrition/Malnutrition Findings: Nutrition Notes Start: 05/15/20 11:35 Freq: Status: Active Protocol: Document 05/15/20 11:35 (Rec: 05/15/20 11:38 MK [id number]) Nutrition Notes 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 No Rashi score. Per chart, pt has small scab on R buttock. Unable to contact pt x2. Per chart, pt weak and has had nausea. Nutrition Intervention Follow-Up By: 05/19/20 Additional Comments FU for full assessment
[2020-05-16] MEDS: ONDANSETRON 4 MG/2 ML INJ IV PRN ×2 (08:33→22:47)
[2020-05-16] MEDS: INSULIN LISPRO 100 UNIT/ML VIAL 3 mL SUB-Q SCH ×4 (08:34→22:50)
[2020-05-16] MEDS: PROMETHAZINE 25 MG TAB PO PRN (12:37)
[2020-05-16] MEDS: INSULIN GLARGINE 100 UNITS/ML SUB-Q SCH (22:48)
[2020-05-17 06:35] LABS: Calcium 9.2 mg/dL (8.4-10.2)
--- NOTE | 2020-05-17 08:43 | Progress Note ---
Assessment and Plan Assessment and plan: (1) Suspected 2019 novel coronavirus infection Current Visit: Yes Status: Acute Plan to address problem: Coronavirus protocol: Contact precautions, isolation precautions, empiric IV antibiotic therapy, IV steroid therapy, supplemental oxygen, pulse oximetry, nebulizer therapy (2) Acute kidney injury (TOVA) with acute tubular necrosis (ATN) Current Visit: Yes Status: Acute Plan to address problem: Encourage free water intake, monitor urine output every shift, monitor fluid balance, Improving. Creatinine decreased from 2.2-1.6 (3) diabetes mellitus, uncontrolled Current Visit: Yes Status: Acute Plan to address problem: Patient started on sliding scale insulin, ADA diet, Accu-Chek, will check hemoglobin A1c, the patient on 10 units of Lantus nightly. Will monitor and adjust as needed (4) Hyperkalemia Current Visit: Yes Status: Acute Plan to address problem: Kayexalate administered in the emergency department. No EKG changes. Corrected (5) Hyponatremia syndrome Current Visit: Yes Status: Acute Plan to address problem: IV fluid resuscitation therapy as clinically indicated, BMP, repeat BMP in a.m. Improving; sodium is 136 this morning (6) DVT prophylaxis Current Visit: Yes Status: Acute Plan to address problem: SCD to bilateral lower extremities while in bed, prophylactic anticoagulation. 05/16/2020 -COVID-19 test is positive, and is on 1 and half liters of oxygen, patient started on Decadron -TOVA is improving, hyperkalemia resolved, hyponatremia resolved -We will do home O2 evaluation and possible discharge today 05/17/2020 -COVID-19 test is positive and patient is on Decadron. -Patient is off oxygen but patient is complaining nausea and vomiting. -Morning labs showed creatinine is within normal limits but patient has mild hyperkalemia and Kayexalate was given -Patient may be discharged home if nausea and vomiting subsided. -PT OT evaluation and possible discharge if patient is stable. History Interval history: Patient was seen and evaluated this morning Patient is off oxygen, she is complaining nausea and vomiting and generalized weakness. Hospitalist Physical - Physical exam Narrative exam: Not in cardiopulmonary distress. The patient appeared well nourished and normally developed. Vital signs as documented. Head exam is unremarkable. No scleral icterus . Neck is without jugular venous distension, thyromegaly, or carotid bruits. Lungs are clear to auscultation. Cardiac exam reveals regular rate and Rhythm. Abdominal exam reveals normal bowel sounds, nontender, no organomegaly. Extremities are nonedematous and both femoral and pedal pulses are normal. 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 Mild left-sided weakness. - Constitutional Vitals: Temp Pulse Resp BP Pulse Ox 98.6 F 84 18 117/72 100 05/17/20 03:50 05/17/20 03:50 05/17/20 03:50 05/17/20 03:50 05/17/20 03:50 General appearance: Present: mild distress, obese Results - Labs CBC & Chem 7: 05/15/20 05:08 05/17/20 05:44 Labs: Laboratory Last Values WBC 5.3 K/mm3 (4.5-11.0) 05/15/20 05:08 RBC 3.65 M/mm3 (3.65-5.03) 05/15/20 05:08 Hgb 10.4 gm/dl (10.1-14.3) 05/15/20 05:08 Hct 31.9 % (30.3-42.9) 05/15/20 05:08 MCV 88 fl (79-97) 05/15/20 05:08 MCH 28 pg (28-32) 05/15/20 05:08 MCHC 33 % (30-34) 05/15/20 05:08 RDW 14.0 % (13.2-15.2) 05/15/20 05:08 Plt Count 211 K/mm3 (140-440) 05/15/20 05:08 Lymph % (Auto) 38.6 % (13.4-35.0) H 05/15/20 05:08 [place] % (Auto) 10.7 % (0.0-7.3) H 05/15/20 05:08 Eos % (Auto) 0.2 % (0.0-4.3) 05/15/20 05:08 Baso % (Auto) 0.3 % (0.0-1.8) 05/15/20 05:08 Lymph # (Auto) 2.0 K/mm3 (1.2-5.4) 05/15/20 05:08 [place] # (Auto) 0.6 K/mm3 (0.0-0.8) 05/15/20 05:08 Eos # (Auto) 0.0 K/mm3 (0.0-0.4) 05/15/20 05:08 Baso # (Auto) 0.0 K/mm3 (0.0-0.1) 05/15/20 05:08 Seg Neutrophils % 50.2 % (40.0-70.0) 05/15/20 05:08 Seg Neutrophils # 2.7 K/mm3 (1.8-7.7) 05/15/20 05:08 D-Dimer 300.10 ng/mlDDU (0-234) H 05/16/20 08:37 Sodium 139 mmol/L (137-145) 05/17/20 05:44 Potassium 5.1 mmol/L (3.6-5.0) H 05/17/20 05:44 Chloride 100.6 mmol/L (98-107) 05/17/20 05:44 Carbon Dioxide 30 mmol/L (22-30) 05/17/20 05:44 Anion Gap 14 mmol/L 05/17/20 05:44 BUN 22 mg/dL (7-17) H 05/17/20 05:44 Creatinine 1.5 mg/dL (0.6-1.2) H 05/17/20 05:44 Estimated GFR 35 ml/min 05/17/20 05:44 BUN/Creatinine Ratio 15 % 05/17/20 05:44 Glucose 213 mg/dL (65-100) H 05/17/20 05:44 POC Glucose 198 mg/dL (70-105) H 05/17/20 08:11 Hemoglobin A1c 13.0 % (4-6) H 05/15/20 05:08 Uric Acid 6.8 mg/dL (3.5-7.6) 05/14/20 16:54 Calcium 9.2 mg/dL (8.4-10.2) 05/17/20 05:44 Magnesium 2.10 mg/dL (1.7-2.3) 05/14/20 16:54 Ferritin 593.3 ng/mL (10.0-200.0) H 05/14/20 16:54 Total Bilirubin 0.40 mg/dL (0.1-1.2) 05/14/20 11:01 AST 26 units/L (5-40) 11/26/20 11:01 ALT 24 units/L (7-56) 05/14/20 11:01 Alkaline Phosphatase 116 units/L (35-129) 05/14/20 11:01 Lactate Dehydrogenase 229 units/L (91-180) H 05/14/20 16:54 Total Creatine Kinase 288 units/L (30-135) H 05/14/20 11:01 C-Reactive Protein 3.40 mg/dL (0.00-1.30) H 05/14/20 16:54 NT-Pro-B Natriuret Pep 84.64 pg/mL (0-900) 05/14/20 11:01 Total Protein 7.5 g/dL (6.3-8.2) 05/14/20 11:01 Albumin 3.5 g/dL (3.9-5) L 05/14/20 11:01 Albumin/Globulin Ratio 0.9 % 05/14/20 11:01 Lipase 25 units/L (13-60) 05/14/20 11:01 Procalcitonin 0.11 ng/mL (<0.15) 05/14/20 16:54 Coronavirus (PCR) Positive (Negative) A 05/15/20 10:26 Waldron/IV: Voiding Method Toilet IV Catheter Type [Left Hand] INT / Saline Lock Active Medications - Current Medications Current Medications: Generic Name Dose Route Start Last Admin Trade Name Freq PRN Reason Stop Dose Admin Acetaminophen 650 mg 05/14/20 18:20 Tylenol PO Q4H PRN Pain MILD(1-3)/Fever >100.5/MARCUS Albuterol 2.5 mg 05/14/20 18:20 Proventil IH Q4HRT PRN Shortness Of Breath Atorvastatin Calcium 40 mg 05/17/20 22:00 Lipitor PO QHS [facility] Clopidogrel Bisulfate 75 mg 05/17/20 10:00 Plavix PO QDAY [facility] Dextrose 50 ml 05/15/20 07:43 D50w (25gm) Syringe IV Q30MIN PRN Hypoglycemia Protocol Ezetimibe 10 mg 05/17/20 10:00 Zetia PO QDAY [facility] Hydrochlorothiazide 25 mg 05/17/20 10:00 Hctz PO QDAY [facility] Levofloxacin/Dextrose 750 mg in 150 mls @ 100 mls/hr 05/17/20 10:00 Levaquin 750mg/150ml IV Q48HR [facility] Protocol Insulin Glargine 10 units 05/15/20 22:00 05/16/20 22:48 Lantus SUB-Q 10 units QHS MEI Administration Insulin Human Lispro 0 unit 05/15/20 08:00 05/16/20 22:50 Humalog SUB-Q Not Given ACHS [facility] Protocol Ondansetron HCl 4 mg 05/14/20 18:20 05/16/20 22:47 Zofran IV 4 mg Q8H PRN Administration Nausea And Vomiting Pantoprazole Sodium 40 mg 05/17/20 10:00 Protonix PO QDAY MEI Promethazine HCl 25 mg 05/16/20 12:09 05/16/20 12:37 Phenergan PO 25 mg Q6H PRN Administration Nausea And Vomiting Sodium Chloride 10 ml 05/14/20 22:00 05/16/20 22:48 Sodium Chloride Flush Syringe 10 Ml IV 10 ml BID MEI Administration Sodium Chloride 10 ml 05/14/20 18:20 Sodium Chloride Flush Syringe 10 Ml IV PRN PRN LINE FLUSH Nutrition/Malnutrition Assess - Dietary Evaluation Nutrition/Malnutrition Findings: Nutrition Notes Start: 05/15/20 11:35 Freq: Status: Active Protocol: Document 05/15/20 11:35 (Rec: 05/15/20 11:38 [id number]) Nutrition Notes 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 No Rashi score. Per chart, pt has small scab on R buttock. Unable to contact pt x2. Per chart, pt weak and has had nausea. Nutrition Intervention Follow-Up By: 05/19/20 Additional Comments FU for full assessment
[2020-05-17] MEDS ORDERED: SODIUM POLYSTYRENE 15 GM/60 ML ORAL LIQD PO NR (09:10)
[2020-05-17] MEDS: INSULIN LISPRO 100 UNIT/ML VIAL 3 mL SUB-Q SCH ×6 (09:37→22:17)
[2020-05-17] MEDS: EZETIMIBE 10 MG TAB PO SCH (09:39)
[2020-05-17] MEDS: PANTOPRAZOLE 40 MG TAB PO SCH (09:39)
[2020-05-17] MEDS: CLOPIDOGREL 75 MG TAB PO SCH (09:40)
[2020-05-17] MEDS ORDERED: hydroCHLOROthiazide 25 MG TAB PO SCH (10:00)
[2020-05-17] MEDS: ONDANSETRON 4 MG/2 ML INJ IV PRN ×2 (14:24→22:20)
[2020-05-17] MEDS: PROMETHAZINE 25 MG TAB PO PRN (17:59)
[2020-05-17] MEDS ORDERED: NON-FORMULARY EACH (Rosuvastatin Calcium [Rosuvastatin Calcium] 40 MG) PO SCH (22:00)
[2020-05-17] MEDS: INSULIN GLARGINE 100 UNITS/ML SUB-Q SCH (22:16)
[2020-05-18] MEDS: ONDANSETRON 4 MG/2 ML INJ IV PRN (05:27)
[2020-05-18 06:54] LABS: Calcium 9.2 mg/dL (8.4-10.2)
[2020-05-18] MEDS: INSULIN LISPRO 100 UNIT/ML VIAL 3 mL SUB-Q SCH ×7 (08:29→22:54)
[2020-05-18] MEDS: CLOPIDOGREL 75 MG TAB PO SCH (09:19)
[2020-05-18] MEDS: PANTOPRAZOLE 40 MG TAB PO SCH (09:19)
[2020-05-18] MEDS: EZETIMIBE 10 MG TAB PO SCH (09:19)
--- NOTE | 2020-05-18 18:07 | Progress Note ---
Assessment and Plan Assessment and plan: -- COVID-19 positive patient Current Visit: Yes Status: Acute Plan to address problem: Continue isolation. Management per protocol Steroids, no remdesivir due to acute kidney injury -- Acute kidney injury (TOVA) with acute tubular necrosis (ATN) Current Visit: Yes Status: Acute Plan to address problem: Encourage free water intake, monitor urine output every shift, monitor fluid balance, Improving. Creatinine decreased from 2.2-1.6-1.3 -- diabetes mellitus, uncontrolled Current Visit: Yes Status: Acute Plan to address problem: Accu-Chek sliding scale coverage ADA diet Hemoglobin A1c insulin as needed -- Hyperkalemia Current Visit: Yes Status: Acute Plan to address problem: Kayexalate administered in the emergency department. No EKG changes. Corrected -- Hyponatremia syndrome Current Visit: Yes Status: Acute Plan to address problem: IV fluid resuscitation therapy as clinically indicated, BMP, repeat BMP in a.m. Improving; sodium is 136 this morning --DVT prophylaxis Current Visit: Yes Status: Acute Plan to address problem: SCD to bilateral lower extremities while in bed, prophylactic anticoagulation. 05/16/2020 -COVID-19 test is positive, and is on 1 and half liters of oxygen, patient started on Decadron -TOVA is improving, hyperkalemia resolved, hyponatremia resolved -We will do home O2 evaluation and possible discharge today 05/17/2020 -COVID-19 test is positive and patient is on Decadron. -Patient is off oxygen but patient is complaining nausea and vomiting. -Morning labs showed creatinine is within normal limits but patient has mild hyperkalemia and Kayexalate was given -Patient may be discharged home if nausea and vomiting subsided. -PT OT evaluation and possible discharge if patient is stable. 05/18/2020; patient feels slightly better Creatinine trending down, added Solu-Medrol No indication for remdesivir due to acute kidney injury ID consulted, home O2 evaluation History Interval history: I have seen and examined the patient at the bedside Patient's chart and medications reviewed Positive COVID-19 patient In isolation Vital signs noted Hospitalist Physical - Constitutional Vitals: Temp Pulse Resp BP Pulse Ox 97.7 F 79 18 152/82 98 05/18/20 03:49 05/18/20 11:16 05/18/20 11:16 05/18/20 11:16 05/18/20 15:01 General appearance: Present: mild distress, well-nourished, obese - EENT Eyes: Present: PERRL, EOM intact - Neck Neck: Present: supple, normal ROM - Respiratory Respiratory effort: normal Respiratory: bilateral: diminished, rhonchi, negative: rales, wheezing - Cardiovascular Rhythm: regular Heart Sounds: Present: S1 & S2 - Extremities Extremities: no ischemia, No edema - Abdominal General gastrointestinal: soft, non-tender, non-distended, normal bowel sounds - Integumentary Integumentary: Present: clear, warm - Psychiatric Psychiatric: appropriate mood/affect, cooperative - Neurologic Neurologic: moves all extremities Results - Labs CBC & Chem 7: 05/15/20 05:08 05/18/20 05:28 Labs: Laboratory Last Values WBC 5.3 K/mm3 (4.5-11.0) 05/15/20 05:08 RBC 3.65 M/mm3 (3.65-5.03) 05/15/20 05:08 Hgb 10.4 gm/dl (10.1-14.3) 05/15/20 05:08 Hct 31.9 % (30.3-42.9) 05/15/20 05:08 MCV 88 fl (79-97) 05/15/20 05:08 MCH 28 pg (28-32) 05/15/20 05:08 MCHC 33 % (30-34) 05/15/20 05:08 RDW 14.0 % (13.2-15.2) 05/15/20 05:08 Plt Count 211 K/mm3 (140-440) 05/15/20 05:08 Lymph % (Auto) 38.6 % (13.4-35.0) H 05/15/20 05:08 [place] % (Auto) 10.7 % (0.0-7.3) H 05/15/20 05:08 Eos % (Auto) 0.2 % (0.0-4.3) 05/15/20 05:08 Baso % (Auto) 0.3 % (0.0-1.8) 05/15/20 05:08 Lymph # (Auto) 2.0 K/mm3 (1.2-5.4) 05/15/20 05:08 [place] # (Auto) 0.6 K/mm3 (0.0-0.8) 05/15/20 05:08 Eos # (Auto) 0.0 K/mm3 (0.0-0.4) 05/15/20 05:08 Baso # (Auto) 0.0 K/mm3 (0.0-0.1) 05/15/20 05:08 Seg Neutrophils % 50.2 % (40.0-70.0) 05/15/20 05:08 Seg Neutrophils # 2.7 K/mm3 (1.8-7.7) 05/15/20 05:08 D-Dimer 300.10 ng/mlDDU (0-234) H 05/16/20 08:37 Sodium 146 mmol/L (137-145) H D 05/18/20 05:28 Potassium 4.2 mmol/L (3.6-5.0) 05/18/20 05:28 Chloride 106.1 mmol/L (98-107) 05/18/20 05:28 Carbon Dioxide 26 mmol/L (22-30) 05/18/20 05:28 Anion Gap 18 mmol/L 05/18/20 05:28 BUN 22 mg/dL (7-17) H 05/18/20 05:28 Creatinine 1.3 mg/dL (0.6-1.2) H 05/18/20 05:28 Estimated GFR 41 ml/min 05/18/20 05:28 BUN/Creatinine Ratio 17 % 05/18/20 05:28 Glucose 149 mg/dL (65-100) H 05/18/20 05:28 POC Glucose 146 mg/dL (70-105) H 05/18/20 16:11 Hemoglobin A1c 13.0 % (4-6) H 05/15/20 05:08 Uric Acid 6.8 mg/dL (3.5-7.6) 05/14/20 16:54 Calcium 9.2 mg/dL (8.4-10.2) 05/18/20 05:28 Magnesium 2.10 mg/dL (1.7-2.3) 05/14/20 16:54 Ferritin 593.3 ng/mL (10.0-200.0) H 05/14/20 16:54 Total Bilirubin 0.40 mg/dL (0.1-1.2) 05/14/20 11:01 AST 26 units/L (5-40) 05/14/20 11:01 ALT 24 units/L (7-56) 05/14/20 11:01 Alkaline Phosphatase 116 units/L (35-129) 05/14/20 11:01 Lactate Dehydrogenase 229 units/L (91-180) H 05/14/20 16:54 Total Creatine Kinase 288 units/L (30-135) H 05/14/20 11:01 C-Reactive Protein 3.40 mg/dL (0.00-1.30) H 05/14/20 16:54 NT-Pro-B Natriuret Pep 84.64 pg/mL (0-900) 05/14/20 11:01 Total Protein 7.5 g/dL (6.3-8.2) 05/14/20 11:01 Albumin 3.5 g/dL (3.9-5) L 05/14/20 11:01 Albumin/Globulin Ratio 0.9 % 05/14/20 11:01 Lipase 25 units/L (13-60) 05/14/20 11:01 Procalcitonin 0.11 ng/mL (<0.15) 05/14/20 16:54 Coronavirus (PCR) Positive (Negative) A 05/15/20 10:26 [place]/IV: Voiding Method Bedpan IV Catheter Type [Left Wrist] Peripheral IV IV Catheter Type [Left Hand] INT / Saline Lock Active Medications - Current Medications Current Medications: Generic Name Dose Route Start Last Admin Trade Name Freq PRN Reason Stop Dose Admin Acetaminophen 650 mg 05/14/20 18:20 Tylenol PO Q4H PRN Pain MILD(1-3)/Fever >100.5/MARCUS Albuterol 2.5 mg 05/14/20 18:20 Proventil IH Q4HRT PRN Shortness Of Breath Atorvastatin Calcium 40 mg 05/17/20 22:00 05/17/20 22:16 Lipitor PO 40 mg QHS MEI Administration Clopidogrel Bisulfate 75 mg 05/17/20 10:00 05/18/20 09:19 Plavix PO 75 mg QDAY MEI Administration Dextrose 50 ml 05/15/20 07:43 05/17/20 18:00 D50w (25gm) Syringe IV 15 ml Q30MIN PRN Administration Hypoglycemia Protocol Ezetimibe 10 mg 05/17/20 10:00 05/18/20 09:19 Zetia PO 10 mg QDAY MEI Administration Levofloxacin/Dextrose 750 mg in 150 mls @ 100 mls/hr 05/17/20 10:00 05/17/20 22:17 Levaquin 750mg/150ml IV 05/20/20 09:59 Infused Q48HR MEI Infusion Protocol Insulin Glargine 20 units 05/17/20 22:00 05/17/20 22:16 Lantus SUB-Q 20 units QHS MEI Administration Insulin Human Lispro 0 unit 05/15/20 08:00 05/18/20 17:18 Humalog SUB-Q Not Given ACHS MEI Protocol Insulin Human Lispro 5 unit 05/17/20 11:30 05/18/20 17:18 Humalog SUB-Q Not Given AC MEI Ondansetron HCl 4 mg 05/14/20 18:20 05/18/20 05:27 Zofran IV 4 mg Q8H PRN Administration Nausea And Vomiting Pantoprazole Sodium 40 mg 05/17/20 10:00 05/18/20 09:19 Protonix PO 40 mg QDAY MEI Administration Promethazine HCl 25 mg 05/16/20 12:09 05/17/20 17:59 Phenergan PO 25 mg Q6H PRN Administration Nausea And Vomiting Sodium Chloride 10 ml 05/14/20 22:00 05/18/20 09:19 Sodium Chloride Flush Syringe 10 Ml IV 10 ml BID MEI Administration Sodium Chloride 10 ml 05/14/20 18:20 Sodium Chloride Flush Syringe 10 Ml IV PRN PRN LINE FLUSH Nutrition/Malnutrition Assess - Dietary Evaluation Nutrition/Malnutrition Findings: Nutrition Notes Start: 05/15/20 11:35 Freq: Status: Active Protocol: Document 05/15/20 11:35 (Rec: 05/15/20 11:38 [id number]) Nutrition Notes 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 No Rashi score. Per chart, pt has small scab on R buttock. Unable to contact pt x2. Per chart, pt weak and has had nausea. Nutrition Intervention Follow-Up By: 05/19/20 Additional Comments FU for full assessment
[2020-05-18] MEDS: methylPREDNISolone Sod Succinate 40 MG/1 ML INJ IV SCH (22:55)
[2020-05-18] MEDS: INSULIN GLARGINE 100 UNITS/ML SUB-Q SCH (22:55)
[2020-05-19] MEDS: methylPREDNISolone Sod Succinate 40 MG/1 ML INJ IV SCH ×3 (06:07→22:12)
--- NOTE | 2020-05-19 09:38 | Progress Note ---
Assessment and Plan Assessment and plan: -- COVID-19 positive patient Current Visit: Yes Status: Acute Plan to address problem: Continue isolation. Management per protocol Steroids, no remdesivir due to acute kidney injury -- Acute kidney injury (TOVA) with acute tubular necrosis (ATN) Current Visit: Yes Status: Acute Plan to address problem: Encourage free water intake, monitor urine output every shift, monitor fluid balance, Improving. Creatinine decreased from 2.2-1.6-1.3 -- diabetes mellitus, uncontrolled Current Visit: Yes Status: Acute Plan to address problem: Accu-Chek sliding scale coverage ADA diet Hemoglobin A1c insulin as needed Change regimen to Novolin 70/30, 10 units twice a day Sliding scale coverage -- Hyperkalemia Current Visit: Yes Status: Acute Plan to address problem: Kayexalate administered in the emergency department. No EKG changes. Corrected -- Hyponatremia syndrome Current Visit: Yes Status: Acute Plan to address problem: IV fluid resuscitation therapy as clinically indicated, BMP, repeat BMP in a.m. Improving; sodium is 136 this morning --DVT prophylaxis Current Visit: Yes Status: Acute Plan to address problem: SCD to bilateral lower extremities while in bed, prophylactic anticoagulation. 05/16/2020 -COVID-19 test is positive, and is on 1 and half liters of oxygen, patient started on Decadron -TOVA is improving, hyperkalemia resolved, hyponatremia resolved -We will do home O2 evaluation and possible discharge today 05/17/2020 -COVID-19 test is positive and patient is on Decadron. -Patient is off oxygen but patient is complaining nausea and vomiting. -Morning labs showed creatinine is within normal limits but patient has mild hyperkalemia and Kayexalate was given -Patient may be discharged home if nausea and vomiting subsided. -PT OT evaluation and possible discharge if patient is stable. 05/18/2020; patient feels slightly better Creatinine trending down, added Solu-Medrol No indication for remdesivir due to acute kidney injury ID consulted, home O2 evaluation History Interval history: I have seen and examined the patient at the bedside Patient's chart and medications reviewed No new complaints, Patient had hypoglycemia Insulin will be adjusted Hospitalist Physical - Constitutional Vitals: Temp Pulse Resp BP Pulse Ox 98.0 F 82 16 127/76 97 05/19/20 04:28 05/19/20 04:28 05/19/20 04:28 05/19/20 04:28 05/19/20 04:28 General appearance: Present: mild distress, well-nourished, obese - EENT Eyes: Present: PERRL, EOM intact - Neck Neck: Present: supple, normal ROM - Respiratory Respiratory effort: normal Respiratory: bilateral: diminished, negative: rales, rhonchi, wheezing - Cardiovascular Rhythm: regular Heart Sounds: Present: S1 & S2 - Extremities Extremities: no ischemia, No edema - Abdominal General gastrointestinal: soft, non-tender, non-distended, normal bowel sounds - Integumentary Integumentary: Present: clear, warm - Psychiatric Psychiatric: appropriate mood/affect, cooperative - Neurologic Neurologic: moves all extremities Results - Labs CBC & Chem 7: 05/15/20 05:08 05/18/20 05:28 Labs: Laboratory Last Values WBC 5.3 K/mm3 (4.5-11.0) 05/15/20 05:08 RBC 3.65 M/mm3 (3.65-5.03) 05/15/20 05:08 Hgb 10.4 gm/dl (10.1-14.3) 05/15/20 05:08 Hct 31.9 % (30.3-42.9) 05/15/20 05:08 MCV 88 fl (79-97) 05/15/20 05:08 MCH 28 pg (28-32) 05/15/20 05:08 MCHC 33 % (30-34) 05/15/20 05:08 RDW 14.0 % (13.2-15.2) 05/15/20 05:08 Plt Count 211 K/mm3 (140-440) 05/15/20 05:08 Lymph % (Auto) 38.6 % (13.4-35.0) H 05/15/20 05:08 [place] % (Auto) 10.7 % (0.0-7.3) H 05/15/20 05:08 Eos % (Auto) 0.2 % (0.0-4.3) 05/15/20 05:08 Baso % (Auto) 0.3 % (0.0-1.8) 05/15/20 05:08 Lymph # (Auto) 2.0 K/mm3 (1.2-5.4) 05/15/20 05:08 [place] # (Auto) 0.6 K/mm3 (0.0-0.8) 05/15/20 05:08 Eos # (Auto) 0.0 K/mm3 (0.0-0.4) 05/15/20 05:08 Baso # (Auto) 0.0 K/mm3 (0.0-0.1) 05/15/20 05:08 Seg Neutrophils % 50.2 % (40.0-70.0) 05/15/20 05:08 Seg Neutrophils # 2.7 K/mm3 (1.8-7.7) 05/15/20 05:08 D-Dimer 300.10 ng/mlDDU (0-234) H 05/16/20 08:37 Sodium 146 mmol/L (137-145) H D 05/18/20 05:28 Potassium 4.2 mmol/L (3.6-5.0) 05/18/20 05:28 Chloride 106.1 mmol/L (98-107) 05/18/20 05:28 Carbon Dioxide 26 mmol/L (22-30) 05/18/20 05:28 Anion Gap 18 mmol/L 05/18/20 05:28 BUN 22 mg/dL (7-17) H 05/18/20 05:28 Creatinine 1.3 mg/dL (0.6-1.2) H 05/18/20 05:28 Estimated GFR 41 ml/min 05/18/20 05:28 BUN/Creatinine Ratio 17 % 05/18/20 05:28 Glucose 149 mg/dL (65-100) H 05/18/20 05:28 POC Glucose 351 mg/dL (70-105) H 05/19/20 07:28 Hemoglobin A1c 13.0 % (4-6) H 05/15/20 05:08 Uric Acid 6.8 mg/dL (3.5-7.6) 05/14/20 16:54 Calcium 9.2 mg/dL (8.4-10.2) 05/18/20 05:28 Magnesium 2.10 mg/dL (1.7-2.3) 05/14/20 16:54 Ferritin 593.3 ng/mL (10.0-200.0) H 05/14/20 16:54 Total Bilirubin 0.40 mg/dL (0.1-1.2) 05/14/20 11:01 AST 26 units/L (5-40) 05/14/20 11:01 ALT 24 units/L (7-56) 05/14/20 11:01 Alkaline Phosphatase 116 units/L (35-129) 05/14/20 11:01 Lactate Dehydrogenase 229 units/L (91-180) H 05/14/20 16:54 Total Creatine Kinase 288 units/L (30-135) H 05/14/20 11:01 C-Reactive Protein 3.40 mg/dL (0.00-1.30) H 05/14/20 16:54 NT-Pro-B Natriuret Pep 84.64 pg/mL (0-900) 05/14/20 11:01 Total Protein 7.5 g/dL (6.3-8.2) 05/14/20 11:01 Albumin 3.5 g/dL (3.9-5) L 05/14/20 11:01 Albumin/Globulin Ratio 0.9 % 05/14/20 11:01 Lipase 25 units/L (13-60) 05/14/20 11:01 Procalcitonin 0.11 ng/mL (<0.15) 05/14/20 16:54 Coronavirus (PCR) Positive (Negative) A 05/15/20 10:26 [place]/IV: Voiding Method Bedside Commode IV Catheter Type [Left Wrist] Peripheral IV IV Catheter Type [Left Hand] INT / Saline Lock Active Medications - Current Medications Current Medications: Generic Name Dose Route Start Last Admin Trade Name Freq PRN Reason Stop Dose Admin Acetaminophen 650 mg 05/14/20 18:20 Tylenol PO Q4H PRN Pain MILD(1-3)/Fever >100.5/MARCUS Albuterol 2.5 mg 05/14/20 18:20 Proventil IH Q4HRT PRN Shortness Of Breath Atorvastatin Calcium 40 mg 05/17/20 22:00 05/18/20 22:55 Lipitor PO 40 mg QHS MEI Administration Clopidogrel Bisulfate 75 mg 05/17/20 10:00 05/18/20 09:19 Plavix PO 75 mg QDAY MEI Administration Dextrose 50 ml 05/15/20 07:43 05/17/20 18:00 D50w (25gm) Syringe IV 15 ml Q30MIN PRN Administration Hypoglycemia Protocol Ezetimibe 10 mg 05/17/20 10:00 05/18/20 09:19 Zetia PO 10 mg QDAY MEI Administration Levofloxacin/Dextrose 750 mg in 150 mls @ 100 mls/hr 05/17/20 10:00 05/17/20 22:17 Levaquin 750mg/150ml IV 05/20/20 09:59 Infused Q48HR MEI Infusion Protocol Insulin Glargine 20 units 05/17/20 22:00 05/18/20 22:55 Lantus SUB-Q Not Given QHS MEI Insulin Human Lispro 0 unit 05/15/20 08:00 05/18/20 22:54 Humalog SUB-Q Not Given ACHS [facility] Protocol Insulin Human Lispro 5 unit 05/17/20 11:30 05/18/20 17:18 Humalog SUB-Q Not Given AC [facility] Methylprednisolone Sodium Succinate 40 mg 05/18/20 22:00 05/19/20 06:07 Solu-Medrol IV 40 mg Q8H MEI Administration Ondansetron HCl 4 mg 05/14/20 18:20 05/18/20 05:27 Zofran IV 4 mg Q8H PRN Administration Nausea And Vomiting Pantoprazole Sodium 40 mg 05/17/20 10:00 05/18/20 09:19 Protonix PO 40 mg QDAY MEI Administration Promethazine HCl 25 mg 05/16/20 12:09 05/17/20 17:59 Phenergan PO 25 mg Q6H PRN Administration Nausea And Vomiting Sodium Chloride 10 ml 05/14/20 22:00 05/18/20 22:55 Sodium Chloride Flush Syringe 10 Ml IV 10 ml BID MEI Administration Sodium Chloride 10 ml 05/14/20 18:20 Sodium Chloride Flush Syringe 10 Ml IV PRN PRN LINE FLUSH Nutrition/Malnutrition Assess - Dietary Evaluation Nutrition/Malnutrition Findings: Nutrition Notes Start: 05/15/20 11:35 Freq: Status: Active Protocol: Document 05/15/20 11:35 (Rec: 05/15/20 11:38 [email or web address]) Nutrition Notes 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 No Rashi score. Per chart, pt has small scab on R buttock. Unable to contact pt x2. Per chart, pt weak and has had nausea. Nutrition Intervention Follow-Up By: 05/19/20 Additional Comments FU for full assessment
[2020-05-19] MEDS: INSULIN LISPRO 100 UNIT/ML VIAL 3 mL SUB-Q SCH ×5 (10:17→22:18)
[2020-05-19] MEDS: INSULIN NPH/REGULAR 70/30 INJ SUB-Q SCH ×2 (10:26→18:28)
[2020-05-19] MEDS: EZETIMIBE 10 MG TAB PO SCH (10:26)
[2020-05-19] MEDS: CLOPIDOGREL 75 MG TAB PO SCH (10:26)
[2020-05-19] MEDS: PANTOPRAZOLE 40 MG TAB PO SCH (10:26)
[2020-05-19] MEDS: ONDANSETRON 4 MG/2 ML INJ IV PRN ×2 (18:35→22:12)
[2020-05-20] MEDS ORDERED: DEXTROSE 50% IN WATER (25GM) 50 ML SYRINGE IV ONE (00:05)
[2020-05-20] MEDS: INSULIN LISPRO 100 UNIT/ML VIAL 3 mL SUB-Q SCH ×3 (08:48→16:47)
[2020-05-20] MEDS: INSULIN NPH/REGULAR 70/30 INJ SUB-Q SCH (08:48)
[2020-05-20] MEDS: ONDANSETRON 4 MG/2 ML INJ IV PRN (11:09)
[2020-05-20] MEDS: PANTOPRAZOLE 40 MG TAB PO SCH (11:10)
[2020-05-20] MEDS: CLOPIDOGREL 75 MG TAB PO SCH (11:10)
[2020-05-20] MEDS: EZETIMIBE 10 MG TAB PO SCH (11:10)
[2020-05-20] MEDS: methylPREDNISolone Sod Succinate 40 MG/1 ML INJ IV SCH (11:10)
[2020-05-20 13:57] VITALS: BP 123/71
--- NOTE | 2020-05-20 14:01 | Discharge Summary ---
Providers - Providers Date of Admission: 05/14/20 18:20 Date of discharge: 05/20/20 Attending physician: DONNA ISAACS 05/17/20 12:08 Physical Therapy Evaluation and Treat [CONS] Urgent Comment: Reason For Exam: gen. 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 Management per protocol Steroids, no remdesivir due to acute kidney injury -- Acute kidney injury (TOVA) with acute tubular necrosis (ATN) Current Visit: Yes Status: Acute Plan to address problem: Encourage free water intake, monitor urine output every shift, monitor fluid balance, Improving. Creatinine decreased from 2.2-1.6-1.3 -- diabetes mellitus, uncontrolled Current Visit: Yes Status: Acute Plan to address problem: Accu-Chek sliding scale coverage ADA diet Hemoglobin A1c insulin as needed Change regimen to Novolin 70/30, 10 units twice a day Sliding scale coverage -- Hyperkalemia Current Visit: Yes Status: Acute Plan to address problem: Kayexalate administered in the emergency department. No EKG changes. Corrected -- Hyponatremia syndrome Current Visit: Yes Status: Acute Plan to address problem: IV fluid resuscitation therapy as clinically indicated, BMP, repeat BMP in a.m. Improving; sodium is 136 this morning Disposition: DC-01 TO HOME OR SELFCARE Time spent for discharge: 35 min Core Measure Documentation - Palliative Care Palliative Care/ Comfort Measures: Not Applicable - Core Measures Any of the following diagnoses?: none Exam - Constitutional Vitals: Temp Pulse Resp BP Pulse Ox 98.6 F 90 22 123/71 96 05/20/20 11:27 05/20/20 11:27 05/20/20 11:27 05/20/20 11:27 05/20/20 11:27 Plan Activity: advance as tolerated Diet: diabetic Follow up with: PRIMARY CARE, [Primary Care Provider] - 3-5 Days Prescriptions: Ondansetron HCl [Zofran] 4 mg PO Q8H PRN #20 tablet PRN Reason: Nausea And Vomiting
== END 2020-05-20 17:19 | disposition home or self-care (01) | DRG 177 ==
LOC: ED 10:17 → 3A 18:20
PROVIDERS: ADMIT Internal Medicine; ATTEND Internal Medicine
DX: U07.1 COVID-19 (principal); N17.0 Acute kidney failure with tubular necrosis; I69.354 Hemiplegia and hemiparesis following cerebral infarction affecting left non-dominant side; E66.2 Morbid (severe) obesity with alveolar hypoventilation; E87.1 Hypo-osmolality and hyponatremia; K21.9 Gastro-esophageal reflux disease without esophagitis; E87.5 Hyperkalemia; E11.65 Type 2 diabetes mellitus with hyperglycemia; I10 Essential (primary) hypertension; Z68.32 Body mass index [BMI] 32.0-32.9, adult; Z79.84 Long term (current) use of oral hypoglycemic drugs; Z87.891 Personal history of nicotine dependence; Z82.49 Family history of ischemic heart disease and other diseases of the circulatory system
CPT/HCPCS: 36415; 70450; 71046; 80048; 80053; 82550; 82728; 82947; 82962; 83036; 83615; 83690; 83735; 83880; 84145; 84550; 85025; 85379; 86140; 93005; 94760; G0378; A9270-GY; J1170; J1815; J1956; J2405; J2920; J7040; Q0169; U0003